=== PATIENT | female | born 1955 | race Caucasian/White ===

== ENCOUNTER → 2018-08-13 | Outpatient (CLI) | payer OTHER ==
[2018-08-15 12:07] LABS: HPV 16 Negative (Negative); HPV 18 Negative (Negative); HPV OTHER HR TYPES Negative (Negative)
== END | disposition home or self-care (01) ==
LOC: LAB 18:16 → LAB SHORT 18:16
PROVIDERS: Nurse Practitioner Family
DX: Z01.411 Encounter for gynecological examination (general) (routine) with abnormal findings (principal)
CPT/HCPCS: 87624; G0145

== ENCOUNTER 2020-01-07 10:16 | Day surgery (SDC) | payer OTHER ==
[~2020-01-07] VITALS: Ht 157.5 cm; Wt 60.0 kg
--- NOTE | 2020-01-07 12:09 | NUR ---
01/07/20 1209 Anthony Cain PATIENT DETERMINED TO BE ASA APPROPRIATE FOR PROPOFOL SEDATION PRIOR TO START OF PROCEDURE BY DR. India Clement Placed3-LEAD EKG REVIEWED WITH PHYSICIAN PRIOR TO START OF PROCEDURE.Patient to ENDO 1History, Chart, Medications and Allergies reviewed before start of procedure.History, Chart, Medications and Allergies reviewed before start of procedure.O2 VIA N/C INTACT THROUGHOUT SEDATION/PROCEDURE.MONITOR INTACT WITH CONTINUOUS PULSE OXIMETRY AND INTERMITTENT BP.
--- NOTE | 2020-01-07 13:11 | NUR ---
Discharge instructions reviewed with patient. Patient verbalizes understanding. Copy given to patient to take home. Discharged via wheelchair to private car for ride home.
[2020-01-07] MEDS ORDERED: OMEP20ER PO (15:30)
[2020-01-07] MEDS ORDERED: OMEP20ER (15:30)
[2020-01-07] MEDS ORDERED: RIZATRIPTAN5 M1 (15:31)
[2020-01-07] MEDS ORDERED: BUPR150ER PO (15:32)
== END 2020-01-07 13:14 | disposition home or self-care (01) ==
LOC: ORSCMMR 10:16 → ORD 11:30 → ORSCMMR 13:14
PROVIDERS: Internal Medicine Gastroenterology
PROC: 0DB48ZX Excision of Esophagogastric Junction, Via Natural or Artificial Opening Endoscopic, Diagnostic (ICD-10-PCS; principal; 2020-01-07 11:30)
PROC: 0DB98ZX Excision of Duodenum, Via Natural or Artificial Opening Endoscopic, Diagnostic (ICD-10-PCS; principal; 2020-01-07 11:30)
PROC: 0DB68ZX Excision of Stomach, Via Natural or Artificial Opening Endoscopic, Diagnostic (ICD-10-PCS; principal; 2020-01-07 11:30)
DX: R10.13 Epigastric pain (principal); K44.9 Diaphragmatic hernia without obstruction or gangrene; K21.9 Gastro-esophageal reflux disease without esophagitis; F32.9 Major depressive disorder, single episode, unspecified; Z87.891 Personal history of nicotine dependence; Z79.899 Other long term (current) drug therapy
CPT/HCPCS: 88305; 88342; J2704; J7120

== ENCOUNTER 2020-06-04 09:06 | Emergency (ER) | payer OTHER ==
[~2020-06-04] VITALS: Ht 152.4 cm; Wt 63.5 kg
[~2020-06-04 09:06] MED LIST: BUPR150ER PO; OMEP20ER; OMEP20ER PO; RIZATRIPTAN5 M1
[2020-06-04] MEDS ORDERED: Nortriptyline H50 MG PO (09:27)
[2020-06-04] MEDS ORDERED: FAMO20 PO (09:27)
[2020-06-04 09:58] LABS: BASOPHILS ABSOLUTE AUTO 0.07 K/mm3 (0.00-0.23); BASOPHILS PERCENT AUTO 1 % (0-2); EOSINOPHILS ABSOLUTE AUTO 0.08 K/mm3 (0.00-0.68); EOSINOPHILS PERCENT AUTO 1 % (0-6); Hematocrit 41.5 % (33.0-51.0); Hemoglobin 12.9 g/dL (11.5-16.0); IMMATURE GRAN ABSOLUTE AUTO 0.04 K/mm3 (0.00-0.10); IMMATURE GRAN PERCENT AUTO 1 % (0-1); LYMPHOCYTES ABSOLUTE AUTO 2.27 K/mm3 (0.84-5.20); LYMPHOCYTES PERCENT AUTO 30 % (21-46); MONOCYTES PERCENT AUTO 7 % (4-13); Mean Corpuscular HGB Conc 31.1 g/dL (31.5-36.5); Mean Corpuscular Volume 93 fL (80-100); Mean Platelet Volume 8.9 fL (9.1-12.4); NEUTROPHILS ABSOLUTE AUTO 4.67 K/mm3 (1.96-9.15); NEUTROPHILS PERCENT AUTO 61 % (41-73); Platelet Count 320 K/mm3 (150-400); RDW Coefficient Variation 13.9 % (11.7-14.2); RDW Standard Deviation 47.2 fL (35.1-46.3); Red Blood Cell Count 4.45 M/mm3 (3.80-5.20); White Blood Cell Count 7.63 K/mm3 (4.00-11.30)
[2020-06-04 10:19] LABS: Albumin, Blood 3.3 g/dL (3.4-5.0); Albumin/Globulin Ratio 0.8 (0.8-1.8); Bilirubin, Total 0.3 mg/dL (0.1-1.0); Creatinine, Blood 1.07 mg/dL (0.40-1.00); Potassium, Blood 4.1 mmol/L (3.5-5.5); Total Protein, Blood 7.3 g/dL (6.4-8.2)
[2020-06-04 11:48] LABS: Source, Urine Clean Catch
[2020-06-04 11:53] LABS: Appearance, Urine Clear (Clear); Bilirubin, Urine Neg (Neg); Blood, Urine Neg (Neg); Color, Urine Yellow (P-Yellow); Glucose Qualitative, Urine Neg (Neg); Ketones, Urine Neg (Neg); Leukocyte Esterase, Urine 1+ (Neg); Nitrite, Urine Neg (Neg); Protein, Urine Neg (Neg); Specific Gravity, Urine 1.015 (1.003-1.022); Urobilinogen, Urine NORM (Normal)
[2020-06-04 12:00] LABS: Bacteria Few /hpf; Red Blood Cells, Urine Not Seen /hpf (0-2); Squamous Epithelial Cells Rare /hpf (Few)
[2020-06-04] MEDS ORDERED: CIPR500 PO (12:06)
[2020-06-04] MEDS ORDERED: METR500 PO (12:06)
== END 2020-06-04 12:18 | disposition home or self-care (01) ==
LOC: ER 09:06
PROVIDERS: Emergency Medicine
DX: R10.31 Right lower quadrant pain (principal); Z88.5 Allergy status to narcotic agent; Z79.899 Other long term (current) drug therapy; Z87.891 Personal history of nicotine dependence
CPT/HCPCS: 36415; 74177; 80053; 81001; 83690; 85025; 87086; 99284-25; Q9967

== ENCOUNTER → 2022-07-24 | Outpatient (CLI) | payer OTHER ==
[~2022-07-24] MED LIST changes: +CIPR500 PO; +FAMO20 PO; +METR500 PO; +Nortriptyline H50 MG PO
== END | disposition home or self-care (01) ==
LOC: LAB 13:49 → LAB SHORT 13:49
DX: K21.9 Gastro-esophageal reflux disease without esophagitis (principal)
CPT/HCPCS: 87338

== ENCOUNTER 2023-01-30 10:21 | Day surgery (SDC) | payer OTHER ==
[~2023-01-30] VITALS: Ht 152.4 cm; Wt 61.9 kg
[2023-01-30] MEDS ORDERED: ATORVASTATIN CA20 MG PO (13:40)
[2023-01-30] MEDS ORDERED: QUETIAPINE FUMA5012 PO (13:40)
[2023-01-30] MEDS ORDERED: SUMA25 PO (13:40)
--- NOTE | 2023-01-30 13:55 | NUR ---
01/30/23 Lynne Hernandez ONE ENEMA INCOMPLETE, ATTEMPTED A SECOND ENEMA WITH RN TO ASSIST PATIENT. SECOND ENEMA COMPLETED. RESULT WAS DARK YELLOW/BROWN SEDIMENT AND CLOUDY, INFORMED SEDATION RN TERRENCE,SANGITA AND DR ROMANO. PER DR ROMANO, OK TO PROCEED.
[2023-01-30 15:00] VITALS: BP 114/79
--- NOTE | 2023-01-30 15:02 | NUR ---
01/30/23 1501 Tamia Tapia IV DC'D CATH INTACT. PT TOLERATED WELL.
== END 2023-01-30 15:02 | disposition home or self-care (01) ==
LOC: ORSCSDS 10:21
PROVIDERS: Internal Medicine Gastroenterology
PROC: 0DB78ZX Excision of Stomach, Pylorus, Via Natural or Artificial Opening Endoscopic, Diagnostic (ICD-10-PCS; principal; 2023-01-30 12:15)
PROC: 0DJD8ZZ Inspection of Lower Intestinal Tract, Via Natural or Artificial Opening Endoscopic (ICD-10-PCS; principal; 2023-01-30 12:15)
PROC: 0DB98ZX Excision of Duodenum, Via Natural or Artificial Opening Endoscopic, Diagnostic (ICD-10-PCS; principal; 2023-01-30 12:15)
DX: K21.9 Gastro-esophageal reflux disease without esophagitis (principal); K31.7 Polyp of stomach and duodenum; R10.32 Left lower quadrant pain; Z86.010 Personal history of colon polyps; F17.210 Nicotine dependence, cigarettes, uncomplicated; K44.9 Diaphragmatic hernia without obstruction or gangrene; E78.00 Pure hypercholesterolemia, unspecified; F20.9 Schizophrenia, unspecified; Z79.899 Other long term (current) drug therapy
CPT/HCPCS: 88305; 88342; J2405; J2704; J7120

== ENCOUNTER 2024-08-19 08:32 | Day surgery (SDC) | payer OTHER ==
[~2024-08-19] VITALS: Ht 152.4 cm; Wt 61.0 kg
[~2024-08-19 08:32] MED LIST changes: +ATORVASTATIN CA20 MG PO; +Lactated Ringer's 1,000 ML IV ONE; +QUETIAPINE FUMA5012 PO; +SUMA25 PO
[2024-08-19] MEDS ORDERED: CITRACAL-D3 ER1 EAC1 (09:01)
[2024-08-19] MEDS ORDERED: ELLURA (09:01)
[2024-08-19] MEDS ORDERED: COGNIQUIL CAPS1 EACH (09:01)
[2024-08-19] MEDS ORDERED: ALKA-SELTZER H300 MG (09:02)
[2024-08-19] MEDS ORDERED: PROBIOTIC1 EA14 (09:02)
[2024-08-19] MEDS ORDERED: ASCO500 (09:02)
[2024-08-19] MEDS ORDERED: HAIR, SKIN AND1 EAC3 (09:02)
[2024-08-19] MEDS ORDERED: Lactated Ringer's 1,000 ML IV ONE (09:51)
[2024-08-19] MEDS ORDERED: propofoL 50 ML IV ONE (10:35)
[2024-08-19 11:42] VITALS: BP 98/67
--- NOTE | 2024-08-19 11:42 | NUR ---
08/19/24 1142 Sim Devine PT WAS INCONTINENT IN SDU AND USED THE RESTOOM AFTERWARD.
== END 2024-08-19 11:42 | disposition home or self-care (01) ==
LOC: ORSCSDS 08:32
PROVIDERS: Internal Medicine Gastroenterology
PROC: 0DJD8ZZ Inspection of Lower Intestinal Tract, Via Natural or Artificial Opening Endoscopic (ICD-10-PCS; principal; 2024-08-19 10:00)
DX: Z12.11 Encounter for screening for malignant neoplasm of colon (principal); Z86.0100 Personal history of colon polyps, unspecified; F25.9 Schizoaffective disorder, unspecified; N18.30 Chronic kidney disease, stage 3 unspecified; E78.5 Hyperlipidemia, unspecified; K21.9 Gastro-esophageal reflux disease without esophagitis; Z87.891 Personal history of nicotine dependence; Z79.899 Other long term (current) drug therapy
CPT/HCPCS: J2704; J7120

== ENCOUNTER → 2024-09-23 | Outpatient (CLI) | payer OTHER ==
[~2024-09-23] MED LIST changes: +ALKA-SELTZER H300 MG; +ASCO500; +CITRACAL-D3 ER1 EAC1; +COGNIQUIL CAPS1 EACH; +ELLURA; +HAIR, SKIN AND1 EAC3; -Lactated Ringer's 1,000 ML IV ONE; +PROBIOTIC1 EA14
== END ==
LOC: LAB 08:18 → LAB SHORT 08:18
DX: B35.1 Tinea unguium (principal); L60.2 Onychogryphosis
CPT/HCPCS: 88305; 88312

== ENCOUNTER → 2025-03-23 | Outpatient (CLI) | payer OTHER ==
[2025-03-23 20:24] LABS: Anion Gap 9.0 mmol/L (3-11); Blood Urea Nitrogen 12.0 mg/dL (8-24); CO2, Blood 25.0 mmol/L (21-32); Calcium, Blood 10.0 mg/dL (8.5-10.1); Chloride, Blood 105.0 mmol/L (98-108); Creatinine, Blood 1.09 mg/dL (0.40-1.00); Glucose, Blood 96.0 mg/dL (70-99); Potassium, Blood 3.9 mmol/L (3.5-5.5); Sodium, Blood 135.0 mmol/L (136-145)
== END ==
LOC: LAB 18:04 → LAB SHORT 18:04
PROVIDERS: Nurse Practitioner Family
DX: N18.30 Chronic kidney disease, stage 3 unspecified (principal)
CPT/HCPCS: 80048